=== PATIENT | male | born 1990 | race Caucasian/White ===

== ENCOUNTER 2020-07-31 04:26 | Emergency (ER) | payer OTHER ==
[~2020-07-31 04:26] MED LIST: AMOXICILLIN500 MG PO; BACLOFEN 20MG T20 MG PO; BENTYL10 MG PO; FIORICET1 EACH PO; IBUPROFEN800 MG PO; IMITREX50 MG PO; KEFLEX500 MG PO; NORCO 5-325 TA1 EACH PO; PERCOCET 5-3251 EACH PO; PHENERGAN25 M1 PO; SKELAXIN800 MG PO; TAMIFLU 75MG CA75 MG PO; TRAZODONE HCL50 MG PO; VOLTAREN **OUT75 MG PO; ZOFRAN ODT4 MG PO/SL; ZOFRAN4 MG PO; ZOFRAN4 MG SL; ZOLOFT50 MG PO
== END 2020-07-31 07:18 | disposition home or self-care (01) ==
LOC: FER 04:26
DX: S00.03XA Contusion of scalp, initial encounter (principal); W22.8XXA Striking against or struck by other objects, initial encounter; Y92.89 Other specified places as the place of occurrence of the external cause; Y99.0 Civilian activity done for income or pay
CPT/HCPCS: 70450

== ENCOUNTER 2020-09-27 02:42 | Emergency (ER) | payer OTHER ==
[2020-09-27] MEDS ORDERED: MEDROL 4MG DOSEP4 MG PO (03:11)
[2020-09-27] MEDS ORDERED: NORCO 5-325 TA1 EACH PO (03:11)
== END 2020-09-27 03:24 | disposition home or self-care (01) ==
LOC: FER 02:42
DX: M75.102 Unspecified rotator cuff tear or rupture of left shoulder, not specified as traumatic (principal)
CPT/HCPCS: 99283; J1885

== ENCOUNTER 2021-04-23 18:30 | Emergency (ER) | payer OTHER ==
[~2021-04-23 18:30] MED LIST changes: +MEDROL 4MG DOSEP4 MG PO
[2021-04-23] MEDS ORDERED: NORCO 5-325 TA1 EACH PO (21:35)
== END 2021-04-23 21:55 | disposition home or self-care (01) ==
LOC: FER 18:30
DX: D48.0 Neoplasm of uncertain behavior of bone and articular cartilage (principal); M54.9 Dorsalgia, unspecified
CPT/HCPCS: 72100; 73560; J1885